=== PATIENT | male | born 1975 ===

== ENCOUNTER 2018-02-16 14:07 | Emergency (ER) | payer MEDICAID ==
[2018-02-16 14:07] VITALS: BMI 28.2
--- NOTE | 2018-02-16 15:52 | C.PDOC ---
History Of Present Illness 42yo male, comes to ER for evaluation of right arm pain after he slipped and fell onto the arm. He reports pain is mainly in his shoulder and is associated with decreased range of motion. Otherwise, denies any weakness, numbness or tingling and offers no additional medical complaints. Time Seen by Provider: 02/16/18 14:33 Chief Complaint (Nursing): Upper Extremity Problem/Injury History Per: Patient History/Exam Limitations: no limitations Onset/Duration Of Symptoms: Days Current Symptoms Are (Timing): Still Present Quality: "Pain" Exacerbating Factor(s): Strenuous Use Of Affected Area Additional History Per: Patient Past Medical History Reviewed: Historical Data, Nursing Documentation, Vital Signs Vital Signs: Last Vital Signs Temp 98.3 F 02/16/18 16:11 Pulse 61 02/16/18 16:11 Resp 18 02/16/18 16:11 BP 122/76 02/16/18 16:11 Pulse Ox 98 02/16/18 16:11 - Medical History PMH: Anxiety, Bipolar Disorder, Depression, Gastrointestinal Ulcer, HTN, Hypothyroidism, Schizophrenia Denies: HIV, Chronic Kidney Disease, Seizures, Sexually Transmitted Disease Surgical History: Endoscopy - [facility] Procedures INJECT/INFUSE ELECTROLYT (07/04/13) INJECT/INFUSE NEC (08/16/14) OTHER SKIN & SUBQ I D (04/25/15) PSYCHIA INTERV/EVAL NEC (09/02/14) PSYCHIAT DRUG THERAP NEC (09/13/02) TETANUS TOXOID ADMINIST (04/25/15) Family History: States: No Known Family Hx, Unknown Family Hx - Social History Hx Tobacco Use: Yes Hx Alcohol Use: No Hx Substance Use: No - Immunization History Hx Tetanus Toxoid Vaccination: Yes (04/25/15) Hx Influenza Vaccination: Yes Hx Pneumococcal Vaccination: No Review Of Systems Musculoskeletal: Positive for: Shoulder Pain (right) Neurological: Negative for: Weakness, Numbness Physical Exam - Physical Exam Appears: Non-toxic, No Acute Distress Extremity: No Normal ROM (Painful ROM of right shoulder ), Tenderness ( tenderness to right shoulder; non-tender clavicle), Other (no swelling or tenderness noted to humerus. non tender from of right fingers, wrist and elbow. ) Pulses: Left Radial: Normal, Right Radial: Normal Neurological/Psych: Oriented x3, Normal Motor, Normal Sensation ED Course And Treatment O2 Sat by Pulse Oximetry: 99 (RA) Pulse Ox Interpretation: Normal Medical Decision Making Medical Decision Making: Impression: Right shoulder injury Plan: -- XR Right shoulder -- Tylenol 650mg PO 1603 no fx noted. d/c home Disposition Counseled Patient/Family Regarding: Studies Performed, Diagnosis, Need For Followup, Rx Given - Disposition Referrals: Alin Linder III, MD [Staff Provider] - Disposition: HOME/ ROUTINE Disposition Time: 16:03 Condition: GOOD Additional Instructions: Follow up with Delia Mariano for pain. Prescriptions: Acetaminophen [Tylenol 325mg tab] 650 mg PO Q6 #30 tab Instructions: Shoulder Sprain (DC) Forms: [employer] (Syriac), General Discharge Instructions - Clinical Impression Clinical Impression: Right shoulder injury - PA / [facility] DIRECT[facility] / Resident Statement MD/DO has reviewed & agrees with the documentation as recorded. - Scribe Statement The provider has reviewed the documentation as recorded by the Jyothi Pickens Provider Attestation: All medical record entries made by the Jyothi were at my direction and personally dictated by me. I have reviewed the chart and agree that the record accurately reflects my personal performance of the history, physical exam, medical decision making, and the department course for this patient. I have also personally directed, reviewed, and agree with the discharge instructions and disposition.
[2018-02-16 16:15] VITALS: BP 122/76; PULSE 61; RESP 18; TEMP 98.3
--- NOTE | 2018-02-16 16:17 | RAD ---
Date of service: 02/16/2018 PROCEDURE: Radiographs of the Right Shoulder HISTORY: s/p fall, landed on shoulder COMPARISON: No prior. FINDINGS: BONES: Bone alignment and mineralization are normal. There is no acute displaced fracture or bone destruction. JOINTS: Normal. Glenohumeral and acromioclavicular joints preserved. SOFT TISSUES: Normal. OTHER FINDINGS: None. IMPRESSION: No acute fracture or dislocation.
[2018-02-18 07:28] VITALS: O2SAT 99
== END 2018-02-16 16:16 | disposition home or self-care (01) ==
LOC: C.ER 14:07
DX: S49.91XA Unspecified injury of right shoulder and upper arm, initial encounter (principal); W01.0XXA Fall on same level from slipping, tripping and stumbling without subsequent striking against object, initial encounter

== ENCOUNTER 2018-09-17 13:52 | Emergency (ER) | payer MEDICAID ==
[2018-09-17 13:52] VITALS: BMI 28.2
[2018-09-17 13:57] VITALS: RESP 18
[2018-09-17] MEDS ORDERED: Naproxen 550 mg Tab PO STA (14:11)
[2018-09-17] MEDS ORDERED: Naproxen 550 mg Tab PO ONE (14:25)
--- NOTE | 2018-09-17 15:15 | RAD ---
Date of service: 09/17/2018 PROCEDURE: Cervical Spine Radiographs. HISTORY: Pain. COMPARISON: None available. FINDINGS: BONES: There is mild degenerative retrolisthesis of C5 on C6. There straightening of the cervical spine with loss of normal cervical lordosis. Vertebral height is normal. Bone mineralization is normal. There is no acute fracture or spondylolisthesis. The craniocervical junction is normal. 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 DISC SPACES: There is multilevel degenerative disc disease with anterior osteophytes, reduced disc heights and multilevel facet arthropathy, worse at C5-6 and C6-7. SOFT TISSUES: No prevertebral soft tissue thickening. There is nuchal ligament ossification at C4 and C5. OTHER FINDINGS: None. IMPRESSION: No acute fracture. Multilevel degenerative disc disease, worse at C5-6 and C6-7. Straightening of the cervical spine may be positional or related to muscle spasm.
--- NOTE | 2018-09-17 15:23 | C.PDOC ---
History Of Present Illness Patient is a 43 year old male, with a PMHx of bipolar disorder, who c/o posterior neck pain for one week. Patient states that he has not had this type of pain before. He denies any CP, dizziness, fever, injuries, sore throat, or headaches. Time Seen by Provider: 09/17/18 14:02 Chief Complaint (Nursing): Back Pain History Per: Patient History/Exam Limitations: no limitations Onset/Duration Of Symptoms: Days (one week) Current Symptoms Are (Timing): Still Present Quality Of Discomfort: "Pain" (posterior neck ) Recent travel outside of the [place]: No Additional History Per: Patient Past Medical History Reviewed: Historical Data, Nursing Documentation, Vital Signs Vital Signs: Last Vital Signs Temp 97.8 F 09/17/18 13:55 Pulse 78 09/17/18 13:55 Resp 18 09/17/18 13:55 BP 128/83 09/17/18 13:55 Pulse Ox 95 09/17/18 13:55 - Medical History PMH: Anxiety, Bipolar Disorder, Depression, Gastrointestinal Ulcer, HTN, Hypothyroidism, Schizophrenia Denies: HIV, Chronic Kidney Disease, Seizures, Sexually Transmitted Disease Surgical History: Endoscopy - [facility] Procedures INJECT/INFUSE ELECTROLYT (07/04/13) INJECT/INFUSE NEC (08/16/14) OTHER SKIN & SUBQ I D (04/25/15) PSYCHIA INTERV/EVAL NEC (09/02/14) PSYCHIAT DRUG THERAP NEC (09/13/02) TETANUS TOXOID ADMINIST (04/25/15) Family History: States: Unknown Family Hx - Social History Hx Tobacco Use: Yes Hx Alcohol Use: No Hx Substance Use: No - Immunization History Hx Tetanus Toxoid Vaccination: Yes (04/25/15) Hx Influenza Vaccination: Yes Hx Pneumococcal Vaccination: Yes Review Of Systems Constitutional: Negative for: Fever ENT: Negative for: Throat Pain Cardiovascular: Negative for: Chest Pain Musculoskeletal: Positive for: Neck Pain (posterior ) Neurological: Negative for: Headache, Dizziness Physical Exam - Physical Exam Appears: Non-toxic, No Acute Distress, Other (comfortable ) Skin: Normal Color, Warm, Dry Head: Atraumatic, Normacephalic Oral Mucosa: Moist Neck: Midline Cervical Tenderness, Paracervical Tenderness, No Step Off Deformity, Supple, Other (tender to palpation of C6/C7. no lymphadenopathy) Chest: Symmetrical, No Deformity Cardiovascular: Rhythm Regular, No Murmur Respiratory: Normal Breath Sounds, No Rales, No Rhonchi, No Wheezing Gastrointestinal/Abdominal: Soft Extremity: Normal ROM ED Course And Treatment O2 Sat by Pulse Oximetry: 95 (on RA) Pulse Ox Interpretation: Normal - Other Rad Xray Cervical Spine AP & Lateral X-Ray: Viewed By Me, Read By Radiologist Interpretation: IMPRESSION: No acute fracture. Multilevel degenerative disc disease, worse at C5-6 and C6-7. Straightening of the cervical spine may be positional or related to muscle spasm. Progress Note: Plan: Xray Cervical Spine AP & Lateral. Anaprox 550mg PO. Flexiril 10mg PO. will follow up with PMD Disposition Counseled Patient/Family Regarding: Diagnosis, Need For Followup, Rx Given - Disposition Referrals: Jayce Birmingham MD [Staff Provider] - Disposition: HOME/ ROUTINE Disposition Time: 15:15 Condition: STABLE Additional Instructions: FOLLOW UP WITH YOUR DOCTOR IN 1-2 DAYS USE MEDICATIONS NEEDED RETURN TO ER IF SYMPTOMS WORSEN Prescriptions: Cyclobenzaprine [Flexeril] 10 mg PO BID PRN #15 tab PRN Reason: Muscle Spasm Naproxen 375 mg PO BID PRN #20 tablet PRN Reason: pain Instructions: Degenerative Disc Disease (DC) Forms: [employer] (Kazakh) Print Language: ICELANDIC - Clinical Impression Clinical Impression: Degenerative disc disease, cervical - Scribe Statement The provider has reviewed the documentation as recorded by the Jyothi Mitchell All medical record entries made by the Jyothi were at my direction and personally dictated by me. I have reviewed the chart and agree that the record accurately reflects my personal performance of the history, physical exam, medical decision making, and the department course for this patient. I have also personally directed, reviewed, and agree with the discharge instructions and disposition.
[2018-09-17 15:32] VITALS: BP 139/80; PULSE 77; TEMP 98.1
[2018-09-17 16:41] VITALS: O2SAT 95
== END 2018-09-17 15:30 | disposition home or self-care (01) ==
LOC: C.ER 13:52
DX: M50.322 Other cervical disc degeneration at C5-C6 level (principal)